=== PATIENT | male | born 1955 | race American Indian/Alaskan Native ===

== ENCOUNTER 2019-12-08 14:19 | Emergency (ER) | payer SELFPAY ==
--- NOTE | 2019-12-08 15:13 | XRay Report ---
CHEST 2 VIEWS INDICATION / CLINICAL INFORMATION: Chest Pain. COMPARISON: None available. FINDINGS: SUPPORT DEVICES: None. HEART / MEDIASTINUM: No significant abnormality. LUNGS / PLEURA: No significant pulmonary or pleural abnormality. No pneumothorax. ADDITIONAL FINDINGS: No significant additional findings. IMPRESSION: 1. No acute abnormality of the chest. Signer Name: Tehodore Chu MD Signed: 12/08/2019 3:08 PM Workstation Name: [id number]
[2019-12-08 15:28] LABS: Basophils % (Auto) 0.7 % (0.0-1.8); Eosinophils % (Auto) 0.8 % (0.0-4.3); Hematocrit 42.7 % (35.5-45.6); Lymphocytes # (Auto) 1.7 K/mm3 (1.2-5.4); Lymphocytes % (Auto) 31.7 % (13.4-35.0); Mean Corpuscular HGB Conc 33 % (32-34); Mean Corpuscular Volume 93 fl (84-94); Monocytes # (Auto) 0.4 K/mm3 (0.0-0.8); Monocytes % (Auto) 7.8 % (0.0-7.3); Platelet Count 219 K/mm3 (140-440); Red Blood Count 4.57 M/mm3 (3.65-5.03); Red Cell Distribution Width 13.6 % (13.2-15.2)
[2019-12-08 15:36] LABS: Alanine Aminotransferase 18 units/L (7-56); Albumin 4.4 g/dL (3.9-5); BUN/Creatinine Ratio 9; Blood Urea Nitrogen 7 mg/dL (9-20); Calcium 9.4 mg/dL (8.4-10.2); Hemolysis Index 33
[2019-12-08] MEDS ORDERED: LIDOCAINE VISCOUS 2% 15 ML ORAL LIQD PO ONE (21:28)
[2019-12-08] MEDS ORDERED: ALUM-MAG HYDROXIDE-SIMETHICONE 200-200-20MG/5ML ORAL LIQD 30 ML PO ONE (21:28)
[2019-12-08] MEDS ORDERED: FAMOTIDINE 20 MG TAB PO ONE (21:28)
--- NOTE | 2019-12-08 21:32 | Emergency Department Report ---
HPI - General Chief Complaint: Chest Pain Time Seen by Provider: 12/08/19 21:18 - HPI HPI: Room 4 The patient is a 64-year-old male present with a chief complaint of dental pain, chest pain. The patient states he came to the emergency department because he has had dental pain since April. Patient states he has not yet seen a dentist. Patient states he is also had burning chest pain intermittently since July 2019. Patient states he has noticed this is the same feeling he has whenever eating spicy foods. Patient denies shortness of breath or nausea/vomiting with his pain. Patient states he has not yet seen a physician about this pain. Patient states his burning pain was severe this morning given it a score of 10/10 but is now decreased to a 2/10 ED Past Medical Hx - Past Medical History Previous Medical History?: Yes Hx Hypertension: Yes - Surgical History Past Surgical History?: No - Family History Family history: no significant - Social History Smoking Status: Never Smoker Substance Use Type: None - Medications Home Medications: Home Medications Medication Instructions Recorded Confirmed Last Taken Type Amoxicillin [Amoxicillin TAB] 875 mg PO BID #14 tablet 12/08/19 Unknown Rx Famotidine [Pepcid] 20 mg PO BID #30 tablet 12/08/19 Unknown Rx traMADoL [Ultram] 50 mg PO Q6HR PRN #14 tablet 12/08/19 Unknown Rx ED Review of Systems ROS: Stated complaint: CHEST PAIN, TOOTH PAIN Other details as noted in HPI Constitutional: no symptoms reported ENT: dental pain Respiratory: denies: shortness of breath Cardiovascular: as per HPI Endocrine: no symptoms reported Gastrointestinal: denies: nausea, vomiting Musculoskeletal: denies: back pain Neurological: denies: headache Physical Exam - Physical Exam Vital Signs: Vital Signs 12/08/19 14:40 Temperature 97.5 F L Pulse Rate 85 Respiratory 18 Rate Blood Pressure 184/85 O2 Sat by Pulse 100 Oximetry Physical Exam: GENERAL: The patient is well-developed well-nourished male sitting on stretcher not appearing to be in acute distress. [] HEENT: Normocephalic. Atraumatic. Extraocular motions are intact. Patient has moist mucous membranes. NECK: Supple. Trachea midline CHEST/LUNGS: Clear to auscultation. There is no respiratory distress noted. HEART/CARDIOVASCULAR: Regular. There is no tachycardia. There is no gallop rub or murmur. ABDOMEN: Abdomen is soft, nontender. Patient has normal bowel sounds. There is no abdominal distention. SKIN: There is no rash. There is no edema. There is no diaphoresis. NEURO: The patient is awake, alert, and oriented. The patient is cooperative. The patient has no focal neurologic deficits. The patient has normal speechand gait. MUSCULOSKELETAL: There is no evidence of acute injury. ED Course Vital Signs 12/08/19 14:40 Temperature 97.5 F L Pulse Rate 85 Respiratory 18 Rate Blood Pressure 184/85 O2 Sat by Pulse 100 Oximetry - Reevaluation(s) Reevaluation #1: 12/08/19 21:55 Patient states he is improving after GI cocktail. ED Medical Decision Making - Lab Data Result diagrams: 12/08/19 15:01 12/08/19 15:01 Laboratory Tests 12/08/19 12/08/19 12/08/19 15:01 15:01 17:36 WBC 5.4 RBC 4.57 Hgb 14.0 Hct 42.7 MCV 93 MCH 31 MCHC 33 RDW 13.6 Plt Count 219 Lymph % (Auto) 31.7 [place] % (Auto) 7.8 H Eos % (Auto) 0.8 Baso % (Auto) 0.7 Lymph # 1.7 [place] # 0.4 Eos # 0.0 Baso # 0.0 Seg Neutrophils % 59.0 Seg Neutrophils # 3.2 Sodium 138 Potassium 4.8 Chloride 101.3 Carbon Dioxide 25 Anion Gap 17 BUN 7 L Creatinine 0.8 Estimated GFR > 60 BUN/Creatinine Ratio 9 Glucose 125 H Calcium 9.4 Total Bilirubin 0.30 AST 21 ALT 18 Alkaline Phosphatase 52 Troponin T < 0.010 < 0.010 Total Protein 8.0 Albumin 4.4 Albumin/Globulin Ratio 1.2 Lipase 27 - EKG Data -: EKG Interpreted by Me EKG shows normal: sinus rhythm Rate: normal - EKG Data When compared to previous EKG there are: previous EKG unavailable Interpretation: other (No ischemic changes seen) - Radiology Data Radiology results: report reviewed (Chest x-ray), image reviewed (Chest x-ray) interpreted by me: Chest x-ray-no focal infiltrates, no pneumothorax Findings [facility] [address] [place] [address] XRay Report Signed Patient: DAVID WHITTAKER MR#: [id number] 1 : 1955 Acct:[id number] Age/Sex: 64 / M ADM Date: 12/08/19 Loc: ED Attending Dr: Ordering Physician: RACHAEL MESA Date of Service: 12/08/19 Procedure(s): XR chest routine 2V Accession Number(s): [id number] cc: RACHAEL MESA Fluoro Time In Minutes: CHEST 2 VIEWS INDICATION / CLINICAL INFORMATION: Chest Pain. COMPARISON: None available. FINDINGS: SUPPORT DEVICES: None. HEART / MEDIASTINUM: No significant abnormality. LUNGS / PLEURA: No significant pulmonary or pleural abnormality. No pneumothorax. ADDITIONAL FINDINGS: No significant additional findings. IMPRESSION: 1. No acute abnormality of the chest. Signer Name: Theodore Chu MD Signed: 12/08/2019 3:08 PM Workstation Name: [id number] Transcribed By: [place] Dictated By: Theodore Chu MD Electronically Authenticated By: Theodore Chu MD Signed Date/Time: 12/08/19 150 DD/ 150 TD/TT: - Differential Diagnosis GERD, ACS, pericarditis, Critical care attestation.: If time is entered above; I have spent that time in minutes in the direct care of this critically ill patient, excluding procedure time. ED Disposition Clinical Impression: Atypical chest pain, Pain, dental, GERD (gastroesophageal reflux disease) Disposition: DC-01 TO HOME OR SELFCARE Is pt being admited?: No Does the pt Need Aspirin: No Condition: Stable Instructions: Chest Pain (ED) Additional Instructions: Return to the emergency department should you develop worsening symptoms, inability to tolerate food or liquids, high fever or any other concerns Prescriptions: Amoxicillin [Amoxicillin TAB] 875 mg PO BID #14 tablet Famotidine [Pepcid] 20 mg PO BID #30 tablet traMADoL [Ultram] 50 mg PO Q6HR PRN #14 tablet PRN Reason: Pain Referrals: [facility] [Outside] - 3-5 Days CHRISTEL BOSWELL MD [Staff Physician] - 3-5 Days (Dr Boswell is a prim priya physician. Please follow-up with him to be established as a patient) VIOLA ALLEN MD [Staff Physician] - 3-5 Days (Dr. Allen is a rn acute. Please follow-up with him for further evaluation) Time of Disposition: 21:56
[2019-12-08 21:37] VITALS: BP 163/51
== END 2019-12-08 22:24 | disposition home or self-care (01) ==
LOC: ED 14:19
DX: K21.9 Gastro-esophageal reflux disease without esophagitis (principal); R07.89 Other chest pain; K08.89 Other specified disorders of teeth and supporting structures; I10 Essential (primary) hypertension; Z79.2 Long term (current) use of antibiotics; Z79.899 Other long term (current) drug therapy
CPT/HCPCS: 36415; 71046; 80053; 83690; 84484; 85025; 93005